=== PATIENT | male | born 1975 | race Caucasian/White ===

== ENCOUNTER 2022-05-30 22:08 | Inpatient (IN) | payer BC ==
[~2022-05-30] VITALS: Ht 200.7 cm; Wt 81.6 kg
[2022-05-30] MEDS ORDERED: ONDANSETRON HCL INJ 2MG/ML 2ML 2 MG/ML VIAL IV STA (22:29)
[2022-05-30] MEDS ORDERED: KETOROLAC TROMETHAMINE 30 MG/ML VIAL IV STA (22:29)
[2022-05-30] MEDS ORDERED: ASPIRIN 325 MG TAB PO ONE (22:30)
[2022-05-30] MEDS ORDERED: SODIUM CHLORIDE FLUSH 10 ML SYR IV PRN (22:31)
[2022-05-30 22:37] LABS: BASOPHILS # (AUTO) 0.1 (0.0-0.1); BASOPHILS % 0.7 % (0.0-1.0); EOSINOPHILS # (AUTO) 0.4 (0.0-0.4); EOSINOPHILS % 2.8 % (0.0-6.0); HEMATOCRIT 45.7 % (38.2-49.6); HEMOGLOBIN 15.7 g/dL (14.0-18.0); LYMPHOCYTES # (AUTO) 4.3 (1.0-3.2); LYMPHOCYTES % 28.4 % (18.0-39.1); MEAN CORPUSCULAR HEMOGLOBIN 31.2 pg (28-32); MEAN CORPUSCULAR HGB CONC 34.4 g/dL (31-35); MEAN CORPUSCULAR VOLUME 90.9 fL (81-99); MONOCYTES # (AUTO) 1.4 (0.2-0.8); MONOCYTES % 8.9 % (4.4-11.3); NEUTROPHILS # (AUTO) 8.9 (2.1-6.9); NEUTROPHILS % 58.9 % (38.7-80.0); PLATELET COUNT 315 x10e3/uL (140-360); RED BLOOD COUNT 5.03 x10e6/uL (4.3-5.7); RED CELL DISTRIBUTION WIDTH 12.7 % (11.7-14.4)
[2022-05-30 22:41] LABS: INR 0.96
[2022-05-30 22:42] LABS: PARTIAL THROMBOPLASTIN TIME 37.4 seconds (23.8-35.5)
[2022-05-30 22:49] LABS: ALBUMIN/GLOBULIN RATIO 1.1 (0.8-2.0); ANION GAP 13.7 mmol/L (8-16); CALCIUM 9.4 mg/dL (8.4-10.2); CREATININE, SERUM 1.2 mg/dL (0.72-1.25); POTASSIUM 3.7 mmol/L (3.5-5.1)
[2022-05-31] VITALS (20 sets, daily range): BP systolic 124–174; BP diastolic 81–118
[2022-05-31 00:42] LABS: AMPHETAMINES SCREEN,URINE NEGATIVE (NEGATIVE); BENZODIAZEPINES SCREEN,URINE NEGATIVE (NEGATIVE); CLARITY,URINE CLEAR (CLEAR); COLOR,URINE YELLOW (YELLOW); KETONES,URINE NEGATIVE (NEGATIVE); LEUKOCYTE ESTERASE ,URINE NEGATIVE (NEGATIVE); NITRITE,URINE NEGATIVE (NEGATIVE); PHENCYCLIDINE SCREEN,URINE NEGATIVE (NEGATIVE); PROTEIN,URINE DIPSTICK NEGATIVE (NEGATIVE); URINE UROBILINOGEN 0.2 mg/dL (0.2 - 1)
[2022-05-31 00:44] LABS: BACTERIA,URINE RARE /HPF; RBC,URINE 0-5 /HPF (0-5); WBC,URINE (MAN) 0-5 /HPF (0-5)
[2022-05-31] MEDS ORDERED: ONDANSETRON HCL INJ 2MG/ML 2ML 2 MG/ML VIAL IV PRN (02:30)
[2022-05-31 07:06] LABS: CREATINE KINASE MB 5.5 ng/mL (0-5.0)
[2022-05-31] MEDS: SODIUM CHLORIDE 0.9% 1000ML 1,000 ML IV SCH ×3 (09:40→21:26)
[2022-05-31] MEDS: METOPROLOL SUCCINATE 25 MG TAB XL PO SCH (09:57)
[2022-05-31] MEDS ORDERED: HEPARIN SOD (PORCINE) 1000 UNIT/ML 30ML ONE (09:57)
[2022-05-31] MEDS: LOSARTAN POTASSIUM 25 MG TAB PO SCH (09:57)
[2022-05-31] MEDS ORDERED: VERAPAMIL HCL 2.5 MG/ML 2 ML VIAL ONE (09:57)
[2022-05-31] MEDS ORDERED: IOPAMIDOL 370 MG/ML 100 ML INFUS..BTL INJ ONE (09:58)
[2022-05-31] MEDS ORDERED: SODIUM CHLORIDE 0.9% 1000ML 1,000 ML ONE (09:58)
[2022-05-31] MEDS ORDERED: LIDOCAINE HCL 1% 30ML-PF VIAL ONE (09:58)
[2022-05-31] MEDS ORDERED: HEPARIN SOD/SOD CHLORIDE 2,000 ML ONE (09:58)
[2022-05-31] MEDS ORDERED: NITROGLYCERIN/D5W 200 MCG/ML 250 ML ONE ×2 (09:58→10:03)
[2022-05-31] MEDS ORDERED: HEPARIN SOD (PORCINE) 5,000 UNIT/ML VIAL ONE (09:59)
[2022-05-31] MEDS ORDERED: MIDAZOLAM HCL 2 MG/2 ML VIAL ONE ×2 (10:03→11:27)
[2022-05-31] MEDS ORDERED: FENTANYL CITRATE/PF 100MCG/2 ML INJ ONE ×2 (10:03→11:27)
[2022-05-31 10:20] LABS: CHOL/HDL RATIO 7.1 (3.9-4.7)
[2022-05-31 10:40] LABS: FREE THYROXINE INDEX 1.8741 (1.4-3.8)
[2022-05-31] MEDS ORDERED: CEFAZOLIN SODIUM 2 GM ONE (11:04)
[2022-05-31] MEDS ORDERED: ASPIRIN 81 MG CHEW TAB ONE (11:29)
[2022-05-31] MEDS ORDERED: TICAGRELOR 90 MG TABLET ONE (11:29)
[2022-05-31] MEDS ORDERED: METOPROLOL TARTRATE INJ 1 MG/ML VIAL ONE (11:39)
[2022-05-31] MEDS ORDERED: NITROGLYCERIN 0.4 MG SUBL ONE (12:06)
[2022-05-31] MEDS ORDERED: Morphine 4mg INJECTION 4 MG/ML INJ ONE (12:07)
[2022-05-31] MEDS ORDERED: HYDRALAZINE HCL 20 MG/ML VIAL ONE (12:07)
[2022-05-31 16:15] LABS: CREATINE KINASE MB 6.9 ng/mL (0-5.0)
[2022-05-31] MEDS ORDERED: HYDRALAZINE HCL 20 MG/ML VIAL IV PRN (22:15)
[2022-05-31] MEDS ORDERED: ATORVASTATIN 40 MG TAB PO SCH (22:15)
[2022-06-01] VITALS: BP 136/85
[2022-06-01 04:00] VITALS: BP 139/81
[2022-06-01] MEDS: SODIUM CHLORIDE 0.9% 1000ML 1,000 ML IV SCH (05:33)
[2022-06-01 06:08] LABS: BASOPHILS # (AUTO) 0.1 (0.0-0.1); BASOPHILS % 0.4 % (0.0-1.0); EOSINOPHILS # (AUTO) 0.3 (0.0-0.4); EOSINOPHILS % 2.1 % (0.0-6.0); HEMATOCRIT 48.4 % (38.2-49.6); HEMOGLOBIN 16.2 g/dL (14.0-18.0); LYMPHOCYTES # (AUTO) 3.1 (1.0-3.2); LYMPHOCYTES % 19.1 % (18.0-39.1); MEAN CORPUSCULAR HEMOGLOBIN 30.7 pg (28-32); MEAN CORPUSCULAR HGB CONC 33.5 g/dL (31-35); MEAN CORPUSCULAR VOLUME 91.8 fL (81-99); MONOCYTES # (AUTO) 1.4 (0.2-0.8); NEUTROPHILS # (AUTO) 11.1 (2.1-6.9); NEUTROPHILS % 68.9 % (38.7-80.0); PLATELET COUNT 312 x10e3/uL (140-360); RED BLOOD COUNT 5.27 x10e6/uL (4.3-5.7); RED CELL DISTRIBUTION WIDTH 12.6 % (11.7-14.4)
[2022-06-01 06:41] LABS: ALBUMIN 3.8 g/dL (3.5-5.0); ANION GAP 12.9 mmol/L (8-16); CALCIUM 9.3 mg/dL (8.4-10.2); CREATININE, SERUM 0.76 mg/dL (0.72-1.25); POTASSIUM 3.9 mmol/L (3.5-5.1)
[2022-06-01 08:00] VITALS: BP 128/87
[2022-06-01] MEDS ORDERED: LOSARTAN POTASSIUM 25 MG TAB PO SCH (09:00)
[2022-06-01] MEDS ORDERED: PRASUGREL 10 MG TAB PO ONE (09:00)
[2022-06-01] MEDS ORDERED: METOPROLOL TARTRATE 50 MG TAB PO SCH (09:00)
[2022-06-01 09:30] VITALS: BP 121/85
[2022-06-01 09:46] VITALS: BP 121/85
[2022-06-01] MEDS: LOSARTAN POTASSIUM 25 MG TAB PO SCH (10:01)
[2022-06-01] MEDS: METOPROLOL SUCCINATE 25 MG TAB XL PO SCH (10:06)
[2022-06-01] MEDS ORDERED: LEVOTHYROXINE SODIUM 50 MCG TAB PO SCH (11:15)
[2022-06-01 12:10] VITALS: BP 125/71
[2022-06-01] MEDS ORDERED: ONDANSETRON HCL 4 MG ORAL DISINTEGRATING TAB PO PRN (15:00)
[2022-06-02] MEDS ORDERED: PRASUGREL 10 MG TAB PO SCH (09:00)
[2022-06-02] MEDS ORDERED: LOSARTAN POTASSIUM 25 MG TAB PO SCH (09:00)
== END 2022-06-01 15:15 | disposition home or self-care (01) | DRG 247 ==
LOC: ER 22:16 → ERHOLD 05-31 02:33 → CATH LAB V 05-31 10:16 → MED/SURG2 05-31 15:36 → OBSVTOIN 06-01 10:40
PROVIDERS: ADMIT Internal Medicine; ATTEND Internal Medicine
PROC: 4A023N7 Measurement of Cardiac Sampling and Pressure, Left Heart, Percutaneous Approach (ICD-10-PCS; principal; 2022-06-01)
PROC: 027034Z Dilation of Coronary Artery, One Artery with Drug-eluting Intraluminal Device, Percutaneous Approach (ICD-10-PCS; 2022-06-01)
PROC: B2111ZZ Fluoroscopy of Multiple Coronary Arteries using Low Osmolar Contrast (ICD-10-PCS; 2022-06-01)
PROC: 6A750ZZ Ultrasound Therapy, Circulatory, Single (ICD-10-PCS; 2022-06-01)
DX: I21.4 Non-ST elevation (NSTEMI) myocardial infarction (principal); I47.20 Ventricular tachycardia, unspecified; I25.10 Atherosclerotic heart disease of native coronary artery without angina pectoris; I45.6 Pre-excitation syndrome; F17.200 Nicotine dependence, unspecified, uncomplicated; R73.9 Hyperglycemia, unspecified; E03.9 Hypothyroidism, unspecified; Z20.822 Contact with and (suspected) exposure to COVID-19
CPT/HCPCS: 36415; 71045; 80053; 80061; 80307; 81001; 82550; 82553; 83036; 83690; 84436; 84443; 84479; 84484; 85025; 85379; 85610; 85730; 92920; 92928; 93005; 93306; 93458; 99152; 99153; 99284; C1725; C1753; C1769; C1874; C1887; G0378; J0360; J1644; J1885; J2001; J2250; J2270; J2405; J3010; J7030; Q9967